=== PATIENT | male | born 1945 | race Caucasian/White ===

== ENCOUNTER 2019-09-20 14:27 | Inpatient (IN) | payer MEDICARE, OTHER ==
[~2019-09-20] VITALS: Ht 193 cm; Wt 125.8 kg
[2019-09-20] MEDS ORDERED: SODIUM CHLORIDE 0.9% 1000ML 1,000 ML IV ONE ×2 (15:31→18:47)
[2019-09-20 15:35] LABS: BASOPHILS % (AUTO) 0.3 % (0.0-5.0); HEMATOCRIT 40.3 % (42-54); LYMPHOCYTES % (AUTO) 7.2 % (21.0-51.0); MEAN CORPUSCULAR HEMOGLOBIN 32.1 pg (27.0-33.0); MEAN CORPUSCULAR HGB CONC 33.6 g/dL (32.0-36.0); MEAN CORPUSCULAR VOLUME 95.7 fL (79-99); MONOCYTES % (AUTO) 6.8 % (3.0-13.0); NEUTROPHILS % (AUTO) 84.7 % (40.0-77.0); RED BLOOD CELL COUNT(AUTO) 4.21 MIL/uL (4.50-6.20); RED CELL DISTRIBUTION WIDTH 13.7 % (11.0-15.5); WHITE BLOOD COUNT (AUTO) 15.5 K/uL (4.8-10.8)
[2019-09-20 15:41] LABS: PLATELET COUNT (AUTO) 718 K/uL (130-400)
[2019-09-20 15:47] LABS: CREATININE 1.6 mg/dL (0.5-1.5)
[2019-09-20 15:49] LABS: INR 1.14 (0.85-1.15); PARTIAL THROMBOPLASTIN TIME 29.3 SEC (26.3-35.5); PROTHROMBIN TIME 11.9 SEC (9.6-11.6)
[2019-09-20 15:51] LABS: ALBUMIN 3.2 g/dL (3.5-5.0); BILIRUBIN,TOTAL 0.6 mg/dL (0.2-1.0); TOTAL PROTEIN, SERUM 8.1 g/dL (6.0-8.3)
[2019-09-20 16:13] LABS: PLATELET MORPHOLOGY COMMENT INCREASED
[2019-09-20 17:21] LABS: APPEARANCE,URINE Clear (CLEAR); BILIRUBIN,URINE Negative (NEGATIVE); COLOR,URINE Yellow (YELLOW); GLUCOSE, URINE (UA) Negative (NEGATIVE); KETONES,URINE Negative (NEGATIVE); LEUKOCYTE ESTERASE ,URINE Small (NEGATIVE); NITRATE,URINE Negative (NEGATIVE); OCCULT BLOOD,URINE Negative (NEGATIVE); PROTEIN,URINE Trace mg/dL (NEGATIVE)
[2019-09-20 17:30] LABS: AMPHET/METH SCREEN,URINE NEGATIVE (NEGATIVE); BARBITURATE SCREEN, URINE NEGATIVE (NEGATIVE); BENZODIAZEPINES SCREEN,URINE NEGATIVE (NEGATIVE); CANNABINOID SCREEN,URINE NEGATIVE (NEGATIVE); COCAINE SCREEN,URINE NEGATIVE (NEGATIVE); OPIATE SCREEN,URINE NEGATIVE (NEGATIVE); PHENCYCLIDINE SCREEN,URINE NEGATIVE (NEGATIVE)
[2019-09-20 17:35] LABS: BACTERIA,URINE Few /HPF (None Seen)
[2019-09-20 17:36] LABS: MUCUS,URINE Few LPF (None Seen); SQUAMOUS EPITHELIAL CELL,UR 0-2 /HPF (0-2)
[2019-09-20] MEDS: SODIUM CHLORIDE 0.9% 1000ML 1,000 ML IV SCH (17:37)
[2019-09-20] MEDS ORDERED: ACETAMINOPHEN 325 MG TAB PO PRN ×2 (17:45)
[2019-09-20] MEDS ORDERED: ONDANSETRON HCL 4 MG/2 ML VIAL IV PRN (17:45)
[2019-09-20] MEDS ORDERED: FINA5TAB41 PO (20:41)
[2019-09-20] MEDS ORDERED: APIX2.5T PO (20:41)
[2019-09-20] MEDS ORDERED: TAMS-1 PO (20:41)
[2019-09-20] MEDS ORDERED: METO-408 PO (20:41)
[2019-09-20] MEDS ORDERED: HYDR-4153 PO (20:41)
[2019-09-20] MEDS ORDERED: METF-445 PO (20:41)
[2019-09-20] MEDS ORDERED: INSLAN SQ (20:41)
[2019-09-20] MEDS ORDERED: LISI40TA4 PO (20:41)
[2019-09-20] MEDS ORDERED: FAMO-136 PO (20:41)
[2019-09-20] MEDS ORDERED: LINA5TAB PO (20:41)
[2019-09-20] MEDS ORDERED: INSU100I3 SQ (20:41)
[2019-09-20] MEDS ORDERED: ISOS30TA6 PO (20:41)
[2019-09-20] MEDS ORDERED: TRAM50TA4 PO (20:41)
[2019-09-20] MEDS ORDERED: FAMOTIDINE/PF 20 MG/2 ML VIAL IV ONE (21:40)
[2019-09-20 22:00] VITALS: BP 128/70
[2019-09-20 23:00] VITALS: BP 109/73
[2019-09-21 03:00] VITALS: BP 136/64
--- NOTE | 2019-09-21 03:27 | NUR ---
ER ADMIT Pt came from [place],states he discharged himself from [facility] yesterday.S/p fall at home,pt has incision to his left knee,healing,no drainage noted.Wrapped with javier wrap.
[2019-09-21] MEDS: TRAMADOL HCL 50 MG TABLET PO PRN ×2 (04:24→22:17)
[2019-09-21 06:05] LABS: EOSINOPHILS % (AUTO) 3.6 % (0.0-8.0); HEMATOCRIT 35.3 % (42-54); MEAN CORPUSCULAR HEMOGLOBIN 33.3 pg (27.0-33.0); MEAN CORPUSCULAR HGB CONC 34.5 g/dL (32.0-36.0); MEAN CORPUSCULAR VOLUME 96.5 fL (79-99); MONOCYTES % (AUTO) 8.6 % (3.0-13.0); NEUTROPHILS % (AUTO) 74.8 % (40.0-77.0); PLATELET COUNT (AUTO) 632 K/uL (130-400); RED BLOOD CELL COUNT(AUTO) 3.66 MIL/uL (4.50-6.20); RED CELL DISTRIBUTION WIDTH 13.2 % (11.0-15.5); WHITE BLOOD COUNT (AUTO) 10.7 K/uL (4.8-10.8)
[2019-09-21 06:23] LABS: ALBUMIN 2.6 g/dL (3.5-5.0); BILIRUBIN,TOTAL 0.6 mg/dL (0.2-1.0); CREATININE 1.4 mg/dL (0.5-1.5); POTASSIUM 4.6 mmol/L (3.5-5.1); TOTAL PROTEIN, SERUM 6.7 g/dL (6.0-8.3)
[2019-09-21] MEDS: SODIUM CHLORIDE 0.9% 1000ML 1,000 ML IV SCH ×2 (06:29→22:14)
[2019-09-21 07:00] VITALS: BP 140/75
[2019-09-21] MEDS ORDERED: ENOXAPARIN SODIUM 30 MG/0.3 ML SQ SCH (09:00)
[2019-09-21] MEDS ORDERED: FAMOTIDINE/PF 20 MG/2 ML VIAL IV SCH (09:00)
[2019-09-21 11:00] VITALS: BP 138/72
[2019-09-21] MEDS: METFORMIN HCL 850 MG TABLET PO SCH ×2 (14:05→22:09)
[2019-09-21] MEDS: CEFTRIAXONE SODIUM 1 GM IVP SCH (15:27)
[2019-09-21 16:00] VITALS: BP 123/71
--- NOTE | 2019-09-21 17:35 | NUR ---
INITIAL CM NOTEMET W PT [id number]; LIVES ALONE, HAS A ROLLING WALKER , NO OTHER DME, HOME SAFE AND ACCESSIBLE, HAD KNEE SURGEYR AT [facility], WAS SENT TO PAU, STATS THE BEDS WERE TOO HARD AND THIN AND THE ROOMS WERE TO COLD, SO HE LEFT- WENT HOME AND FELL, STATES HE IS GOING BACK [facility] CONSENT HOPE OBTAINED FOR [facility], WILL FOLLOW UP IN AM Addendum: 09/21/19 at 1917 by MANINDER SEGAL RN CM Amended: Links added.
[2019-09-21] MEDS: INSULIN HUMULIN R 100 UNIT/ML 3ML SQ SCH ×2 (17:57→21:00)
[2019-09-21 19:00] VITALS: BP 127/87
[2019-09-21] MEDS: CHLORHEXIDINE GLUCONATE 473 ML MOUTHWASH MM SCH (21:00)
[2019-09-21] MEDS: FAMOTIDINE 20MG TAB 20 MG TAB PO SCH (22:09)
[2019-09-21] MEDS: APIXABAN 2.5 MG TABLET PO SCH (22:09)
[2019-09-21] MEDS: TAMSULOSIN HCL 0.4 MG CAP.ER.24H PO SCH (22:09)
[2019-09-21] MEDS: ISOSORBIDE MONO 30MG TAB SR PO SCH (22:10)
[2019-09-21] MEDS: HYDRALAZINE HCL 25 MG TABLET PO SCH (22:10)
[2019-09-21 23:00] VITALS: BP 121/72
[2019-09-22 03:00] VITALS: BP 99/67
[2019-09-22 05:20] LABS: HEMOGLOBIN A1C 8.2 % (4.0-6.0)
[2019-09-22 05:24] LABS: BASOPHILS % (AUTO) 1.3 % (0.0-5.0); EOSINOPHILS % (AUTO) 5.8 % (0.0-8.0); HEMATOCRIT 32.1 % (42-54); LYMPHOCYTES % (AUTO) 18.7 % (21.0-51.0); MEAN CORPUSCULAR HEMOGLOBIN 32.6 pg (27.0-33.0); MEAN CORPUSCULAR VOLUME 95.8 fL (79-99); MONOCYTES % (AUTO) 8.9 % (3.0-13.0); NEUTROPHILS % (AUTO) 65.3 % (40.0-77.0); PLATELET COUNT (AUTO) 591 K/uL (130-400); RED BLOOD CELL COUNT(AUTO) 3.35 MIL/uL (4.50-6.20); RED CELL DISTRIBUTION WIDTH 13.4 % (11.0-15.5); WHITE BLOOD COUNT (AUTO) 9.5 K/uL (4.8-10.8)
[2019-09-22] MEDS: INSULIN HUMULIN R 100 UNIT/ML 3ML SQ SCH ×4 (05:26→21:00)
[2019-09-22 05:43] LABS: ALBUMIN 2.4 g/dL (3.5-5.0); BILIRUBIN,DIRECT 0.1 mg/dL (0.0-0.3); BILIRUBIN,TOTAL 0.4 mg/dL (0.2-1.0); CREATININE 1.4 mg/dL (0.5-1.5); MAGNESIUM 1.8 mg/dL (1.80-2.40); POTASSIUM 4.4 mmol/L (3.5-5.1); TOTAL PROTEIN, SERUM 6.3 g/dL (6.0-8.3)
[2019-09-22 07:30] VITALS: BP 98/57
[2019-09-22] MEDS: LINAGLIPTIN 5 MG TABLET PO SCH (09:00)
[2019-09-22] MEDS: HYDRALAZINE HCL 25 MG TABLET PO SCH (09:00)
[2019-09-22] MEDS: CHLORHEXIDINE GLUCONATE 473 ML MOUTHWASH MM SCH ×2 (09:20→22:29)
[2019-09-22] MEDS: FAMOTIDINE 20MG TAB 20 MG TAB PO SCH ×2 (09:21→22:28)
[2019-09-22] MEDS: APIXABAN 2.5 MG TABLET PO SCH ×2 (09:21→22:36)
[2019-09-22] MEDS: FINASTERIDE 5 MG TABLET PO SCH (09:21)
[2019-09-22] MEDS: METFORMIN HCL 850 MG TABLET PO SCH ×3 (09:25→22:34)
[2019-09-22 11:00] VITALS: BP 111/78
[2019-09-22] MEDS: SODIUM CHLORIDE 0.9% 1000ML 1,000 ML IV SCH (11:08)
--- NOTE | 2019-09-22 11:12 | NUR ---
scheduled am dose of apresoline was not given r/t hypotension 98/57. Stable otherwise.
--- NOTE | 2019-09-22 14:04 | NUR ---
THREE CALLS TO [facility] STILL DO NOT KNOW WHETHER PAU WILL TAKE BACK THIS PT THAT WENT AMA FROM THEIR FACILITY WAITING TO HEAR. WILL SEND REFERRAL WHEN CONFIRMED
[2019-09-22] MEDS: CEFTRIAXONE SODIUM 1 GM IVP SCH (14:31)
--- NOTE | 2019-09-22 15:19 | NUR ---
OK TO RETURN PER RETNASH CALL FROM [facility] TO RETURN TO PAU
[2019-09-22 16:00] VITALS: BP 110/64
[2019-09-22 21:50] VITALS: BP 116/63
[2019-09-22] MEDS: TAMSULOSIN HCL 0.4 MG CAP.ER.24H PO SCH (22:27)
[2019-09-22] MEDS: ISOSORBIDE MONO 30MG TAB SR PO SCH (22:28)
[2019-09-22] MEDS: INSULIN GLARGINE 100 UNITS/ML 10 ML VIAL SQ SCH (22:35)
[2019-09-23 00:05] VITALS: BP 126/93
[2019-09-23 04:50] VITALS: BP_SYST 126; BP_SYST 130; BP_DIAS 70; BP_DIAS 93
[2019-09-23 05:11] LABS: BASOPHILS % (AUTO) 1.4 % (0.0-5.0); EOSINOPHILS % (AUTO) 5.7 % (0.0-8.0); MEAN CORPUSCULAR HGB CONC 33.2 g/dL (32.0-36.0); MEAN CORPUSCULAR VOLUME 96.6 fL (79-99); NEUTROPHILS % (AUTO) 64.9 % (40.0-77.0); PLATELET COUNT (AUTO) 538 K/uL (130-400); RED BLOOD CELL COUNT(AUTO) 3.62 MIL/uL (4.50-6.20); WHITE BLOOD COUNT (AUTO) 8.2 K/uL (4.8-10.8)
[2019-09-23 05:38] LABS: CREATININE 1.2 mg/dL (0.5-1.5); MAGNESIUM 1.8 mg/dL (1.80-2.40); POTASSIUM 4.2 mmol/L (3.5-5.1)
[2019-09-23] MEDS: INSULIN HUMULIN R 100 UNIT/ML 3ML SQ SCH ×3 (06:45→16:22)
[2019-09-23] MEDS: INSULIN GLARGINE 100 UNITS/ML 10 ML VIAL SQ SCH (06:47)
[2019-09-23 08:00] VITALS: BP 136/64
[2019-09-23] MEDS: LINAGLIPTIN 5 MG TABLET PO SCH (09:00)
[2019-09-23] MEDS: METFORMIN HCL 850 MG TABLET PO SCH ×2 (10:19→14:19)
[2019-09-23] MEDS: CHLORHEXIDINE GLUCONATE 473 ML MOUTHWASH MM SCH (10:19)
[2019-09-23] MEDS: FAMOTIDINE 20MG TAB 20 MG TAB PO SCH (10:20)
[2019-09-23] MEDS: APIXABAN 2.5 MG TABLET PO SCH (10:20)
[2019-09-23] MEDS: FINASTERIDE 5 MG TABLET PO SCH (10:21)
[2019-09-23] MEDS: TRAMADOL HCL 50 MG TABLET PO PRN (10:25)
[2019-09-23 11:36] VITALS: BP 123/66
[2019-09-23] MEDS: CEFTRIAXONE SODIUM 1 GM IVP SCH (14:19)
[2019-09-23 16:00] VITALS: BP 123/60
--- NOTE | 2019-09-23 17:20 | NUR ---
REPORT TO SNF MEDICATION RECONCILIATION FAXED TO [phone] AND REPORT CALLED TO [facility] , PENDING VAN TO PICK PATIENT UP , DISCHARGE INSTRUCTION GIVEN TO PATIENT AND IV REMOVED WITH CATHETER INTACT AND SITE DRESSED. [employer] [employer] CHAIR UNIT REMOVED AFTER NOTIFYING MONITORING UNIT OF PATIENT DISCHARGE STATUS, REVIEWED MEDICATION AND FOLLOW-UP NEEDED WILL BE FOLLOWED AT [facility] BY DR LEVINE. NO CONCERNS OR CONCERNS AT THIS TIME. PATIENT BELONGING GATHERED AND PATIENT DRESSED WAITING FOR [facility] VAN TRANSPORTATION.
--- NOTE | 2019-09-23 18:00 | NUR ---
PATIENT LEFT WITH [facility] , VIA WHEELCHAIR COPY OF CHART GIVEN TO WASTE MINIMIZATION TECHNICIAN.
== END 2019-09-23 18:00 | DRG 682 ==
LOC: EDH 14:27 → EDHIP 17:37 → OBSVTOIN 17:37 → 3CH 21:43
PROVIDERS: ADMIT Internal Medicine; ATTEND Internal Medicine
DX: N17.9 Acute kidney failure, unspecified (principal); G93.41 Metabolic encephalopathy; N39.0 Urinary tract infection, site not specified; D72.829 Elevated white blood cell count, unspecified; E86.9 Volume depletion, unspecified; R79.89 Other specified abnormal findings of blood chemistry; N40.0 Benign prostatic hyperplasia without lower urinary tract symptoms; Z96.652 Presence of left artificial knee joint; I44.0 Atrioventricular block, first degree; I10 Essential (primary) hypertension; E11.9 Type 2 diabetes mellitus without complications; W01.0XXA Fall on same level from slipping, tripping and stumbling without subsequent striking against object, initial encounter; Y93.89 Activity, other specified; Y92.099 Unspecified place in other non-institutional residence as the place of occurrence of the external cause; Y99.8 Other external cause status; Z90.5 Acquired absence of kidney
CPT/HCPCS: 36415; 70450; 71045; 72170; 73562; 80048; 80053; 80076; 80305; 81001; 82550; 82948; 83036; 83735; 84484; 85025; 85610; 85730; 93005; 97039; G0378; J0696; J1650; J1815; J3490; J7030